=== PATIENT | female | born 1950 | race Asian ===

== ENCOUNTER 2017-02-09 20:28 | Emergency (ER) | payer MEDICARE ==
[~2017-02-09 20:28] MED LIST: NO HOME MEDICATIONS
[2017-02-09 20:33] VITALS: TEMP 97.9
[2017-02-09 21:23] LABS: BASO % 0.1 % (0.0-2.0); EOS % 0.1 % (0-4.0); LYMPH # 0.7 (1.2-3.4); LYMPH % 10.1 % (20.0-51.0); MEAN CELL VOLUME 94 fl (80.0-100.0); MEAN CORPUSCULAR HGB CONC 35 g/dl (33.0-37.0); MEAN PLATELET VOLUME 10.3 fl (7.4-10.4); MONO # 0.2 (0.1-0.6); MONO % 3.4 % (1.7-9.3); PLATELET COUNT 99 K/mm3 (130-400); RED BLOOD COUNT 3.38 M/mm3 (4.10-5.30); REDCELL DISTRIBUTION WIDTH-CV 13.7 % (11.5-14.5)
[2017-02-09 21:24] LABS: HEMATOCRIT 31.9 % (37.0-47.0); MEAN CORPUSCULAR HEMOGLOBIN 33 pg (27.0-31.0)
[2017-02-09 21:28] LABS: ADJUSTED CALCIUM 8.5 mg/dL (8.4-10.2); ALBUMIN 4.1 gm/dL (3.5-5.0); BILIRUBIN,TOTAL 0.4 mg/dL (0.0-1.0); CALCIUM 8.6 mg/dL (8.4-10.2); CREATININE, serum 0.64 mg/dL (0.52-1.25); POTASSIUM 3.3 mmol/L (3.4-5.0); TOTAL PROTEIN 7.3 gm/dL (6.4-8.2)
[2017-02-09 22:10] VITALS: BP 111/74; PULSE 88
== END 2017-02-09 22:17 | disposition home or self-care (01) ==
LOC: COL.ER 20:28
PROVIDERS: Family Medicine
DX: S06.0X9A Concussion with loss of consciousness of unspecified duration, initial encounter (principal); S01.01XA Laceration without foreign body of scalp, initial encounter; W19.XXXA Unspecified fall, initial encounter; Z23 Encounter for immunization

== ENCOUNTER 2017-02-19 12:51 | Emergency (ER) | payer MEDICARE | END 2017-02-19 13:13 | disposition home or self-care (01) | LOC: COL.ER 12:51 | DX: Z09 Encounter for follow-up examination after completed treatment for conditions other than malignant neoplasm (principal) ==

== ENCOUNTER 2017-03-05 11:10 | Emergency (ER) | payer MEDICARE ==
[~2017-03-05] VITALS: Ht 154.9 cm; Wt 54.5 kg
[2017-03-05 11:16] VITALS: BP 138/85; PULSE 95; TEMP 98.5
== END 2017-03-05 12:23 | disposition home or self-care (01) ==
LOC: COL.ER 11:10
DX: I83.91 Asymptomatic varicose veins of right lower extremity (principal)

== ENCOUNTER 2017-03-18 16:18 | Emergency (ER) | payer MEDICARE ==
[2017-03-18 16:22] VITALS: BP 126/83; PULSE 86; TEMP 97.8
== END 2017-03-18 17:00 | disposition home or self-care (01) ==
LOC: COL.ER 16:18
DX: S00.12XA Contusion of left eyelid and periocular area, initial encounter (principal); F03.90 Unspecified dementia, unspecified severity, without behavioral disturbance, psychotic disturbance, mood disturbance, and anxiety; F17.210 Nicotine dependence, cigarettes, uncomplicated; W57.XXXA Bitten or stung by nonvenomous insect and other nonvenomous arthropods, initial encounter

== ENCOUNTER 2017-09-13 02:05 | Emergency (ER) | payer MEDICARE ==
[~2017-09-13] VITALS: Wt 56.8 kg
[2017-09-13 02:09] VITALS: BP 115/70; TEMP 97.8
[2017-09-13] MEDS ORDERED: LAMISIL250 M1 PO (02:45)
[2017-09-13 03:05] VITALS: PULSE 80
== END 2017-09-13 03:06 | disposition home or self-care (01) ==
LOC: COL.ER 02:05
DX: B35.0 Tinea barbae and tinea capitis (principal); Z90.710 Acquired absence of both cervix and uterus

== ENCOUNTER 2021-07-02 14:58 | Emergency (ER) | payer MEDICARE ==
[~2021-07-02] VITALS: Ht 165.1 cm; Wt 63.6 kg
[~2021-07-02 14:58] MED LIST changes: +LAMISIL250 M1 PO
[2021-07-02 14:59] VITALS: BP 146/96; PULSE 95; TEMP 98.7
[2021-07-02 15:28] LABS: BASO % 0.5 % (0.0-2.0); GRAN # 1.1 K/mm3 (1.4-6.5); GRAN % 51.6 % (42.2-75.2); HEMOGLOBIN 11.4 g/dl (12.5-16.0); LYMPH # 0.8 K/mm3 (1.2-3.4); LYMPH % 39.3 % (20.0-51.0); MEAN CELL VOLUME 98 fl (80.0-100.0); MEAN CORPUSCULAR HEMOGLOBIN 34 pg (27.0-31.0); MEAN CORPUSCULAR HGB CONC 34 g/dl (33.0-37.0); MEAN PLATELET VOLUME 10.3 fl (7.4-10.4); MONO # 0.2 K/mm3 (0.1-0.6); MONO % 8.1 % (1.7-9.3); PLATELET COUNT 101 K/mm3 (130-400); REDCELL DISTRIBUTION WIDTH-CV 13.6 % (11.5-14.5)
[2021-07-02 15:33] LABS: HEMATOCRIT 33.4 % (37.0-47.0)
[2021-07-02 15:47] LABS: ALBUMIN 4.2 gm/dL (3.4-4.8); BILIRUBIN,TOTAL 0.5 mg/dL (0.2-1.2); CALCIUM 8.6 mg/dL (8.4-10.2); CREATININE, serum 1.26 mg/dL (0.57-1.11); POTASSIUM 3.5 mmol/L (3.5-4.5); TOTAL PROTEIN 6.9 gm/dL (6.2-8.1)
[2021-07-02 15:55] LABS: TROPONIN-I 0.01 ng/mL (0.00-0.033)
[2021-07-02 17:37] LABS: COLLECTION METHOD CLEAN CATCH
[2021-07-02 17:42] LABS: MUCOUS Present (NOT PRESENT); PH 7 (5-8); SQUAMOUS EPITHELIAL 0-2 /hpf (0-10); URINE APPEARANCE Clear (CLEAR/HAZY); URINE BACTERIA None Seen (NONE SEEN); URINE BILIRUBIN Negative (NEGATIVE); URINE BLOOD Negative (NEGATIVE); URINE COLOR Straw (YELLOW); URINE GLUCOSE Negative (NEGATIVE); URINE KETONE 1+ (NEGATIVE); URINE LEUKOCYTE ESTERASE Negative (NEGATIVE); URINE NITRATE Negative (NEGATIVE); URINE PROTEIN(semi-quant) Negative (NEGATIVE); URINE RBC 0-2 /hpf (0-2); URINE UROBILINOGEN Negative (NEGATIVE)
[2021-07-02 17:52] LABS: TRICYCLIC ANTIDEPRESS URINE NEGATIVE
--- NOTE | 2021-07-02 20:25 | NUR ---
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 Patient was found down in her yard and nursing reports that patient is confused. [facility] located a possible ex spouse and left a note on his door to contact emergency room as soon as possible. Worker collaborated with nursing and emergency room physician regarding the above information.
== END 2021-07-02 19:21 | disposition home or self-care (01) ==
LOC: COL.ER 14:58
PROVIDERS: Emergency Medicine
DX: R41.82 Altered mental status, unspecified (principal); D72.819 Decreased white blood cell count, unspecified; F03.90 Unspecified dementia, unspecified severity, without behavioral disturbance, psychotic disturbance, mood disturbance, and anxiety
CPT/HCPCS: 99222; J7030